=== PATIENT | female | born 1995 | race Asian ===

== ENCOUNTER → 2018-12-25 10:39 | Outpatient (CLI) | payer BC, SELFPAY ==
--- NOTE | 2018-12-25 10:42 | DI.RAD.S_ITS ---
PROCEDURE: XR KNEE LT 3V INDICATIONS: knee pain TECHNIQUE: 3 views of the knee were acquired. COMPARISON: None. FINDINGS: Bones: No fractures or dislocations. No suspicious bony lesions. Soft tissues: No joint effusion. No suspicious soft tissue calcifications. IMPRESSION: No fracture. No osseous lesion. If symptoms and/or clinical suspicion for pathology persists, further assessment with repeat radiographs (7-10 days) or advanced imaging (e.g. CT, MRI or bone scan) may be helpful. Dictated by: Shannon Watson MD, PhD on 12/25/2018 at 10:56 Approved by: Shannon Watson MD, PhD on 12/25/2018 at 10:56
--- NOTE | 2018-12-25 11:51 | DI.RAD.S_ITS ---
PROCEDURE: XR KNEE RT 3V INDICATIONS: comparison film for L knee pain TECHNIQUE: 3 views of the knee were acquired. COMPARISON: [facility], CR, XR KNEE LT 3V, 12/25/2018, 10:40. FINDINGS: Bones: No fractures or dislocations. No suspicious bony lesions. No definite joint space narrowing. Soft tissues: No joint effusion. No suspicious soft tissue calcifications. IMPRESSION: Normal left knee. Dictated by: Holden Carey M.D. on 12/25/2018 at 13:40 Approved by: Holden Carey M.D. on 12/25/2018 at 13:44
== END ==
PROVIDERS: Family Provider Physician Assistant Medical; PCP Physician Assistant Medical; Visit Provider Physician Assistant
DX: M25.562 Pain in left knee (principal)
CPT/HCPCS: 73562

== ENCOUNTER 2021-03-16 02:35 | Emergency (ER) | payer BC, SELFPAY ==
[2021-03-16 02:43] VITALS: BP 133/97; PULSE 77; RESP 16; TEMP 36.3; O2SAT 98; BMI 22.2
--- NOTE | 2021-03-16 02:43 | ED_ITS ---
HPI - Abdominal Pain General Chief Complaint: Abdominal Pain Stated Complaint: Abd Pain Time Seen by Provider: 03/16/21 02:43 History of Present Illness HPI narrative: 25-year-old female nonsmoker with history of frequent constipation, rheumatoid arthritis presents with her mother and a chief complaint of upwards of 1 week of difficulty with bowel movements. She has episodic pain in her upper abdomen that seems to come and go without any obvious provocation or palliation. She denies any radiation. She has had no nausea or vomiting. She denies any fever or chills. Her last bowel movement was yesterday. She has been taking Mag citrate and even tried an enema to help get her bowels moving. She denies any change in her diet. Though she frequently has trouble moving her bowels it seems at her symptoms have likely worsened since starting Paxil about 6 weeks ago. She denies any recent travel. Related Data Home Medications Medication Instructions Recorded Confirmed lysine [L-Lysine] PO 12/25/18 12/25/18 norgestimate-ethinyl estradiol PO 12/25/18 12/25/18 [Lat-Cl-Rraredehc] omega-3 fatty acids [Fish Oil] PO 12/25/18 12/25/18 pediatric multivitamin PO 12/25/18 12/25/18 [multivitamin] tofacitinib [Xeljanz] PO 12/25/18 12/25/18 Previous Rx's Medication Instructions Recorded pantoprazole 40 mg tablet,delayed 40 mg PO DAILY #30 tab 03/16/21 release (Protonix) Allergies Allergy/AdvReac Type Severity Reaction Status Date / Time adalimumab [From Humira] Allergy Severe rash, hives Verified 12/25/18 17:09 etanercept [From Enbrel] Allergy rash, hives Verified 12/25/18 17:09 Review of Systems Review of Systems Narrative: GENERAL: Denies chills, fatigue, malaise, fever, sweats. HEENT: Denies sinus pain, ear pain, sore throat, difficulty swallowing, dizziness. RESPIRATORY: Denies dyspnea, cough, wheezing, hemoptysis, sputum. CARDIOVASCULAR: Denies chest pain, palpitations, orthopnea, edema, GASTROINTESTINAL: See HP : Denies dysuria, frequency, incontinence, hematuria, urinary retention. MUSCULOSKELETAL: denies weakness, joint pain, or bony pain SKIN: Denies rash, skin lesions, or other NEUROLOGIC: Denies weakness, headache, numbness, change in speech, confusion, seizures, incoordination. PSYCHIATRIC: No concerning psychosocial issues. 12 point review of systems is negative except for those stated above Patient History Social History Smoking Status: Never smoker Smoking Status: Never smoker Exam Narrative Exam Narrative: GENERAL: [25 year old patient appears stated age. Well-developed patient, in mild distress. HEAD: Atraumatic. Normocephalic. EYES: Pupils equal round and reactive. Extraocular motions intact. No scleral icterus. No injection or drainage. ENT: Nose without bleeding, purulent drainage. Throat without erythema, tonsillar hypertrophy or exudate. Airway patent. NECK: Trachea midline. Non tender CARDIOVASCULAR: Regular rate and rhythm without murmurs, gallops, or rubs. RESPIRATORY: Clear to auscultation. Breath sounds equal bilaterally. No wheezes, rales, or rhonchi. GASTROINTESTINAL: Abdomen soft, non-tender, nondistended. EXTREMITIES: No edema or joint tenderness. BACK: Nontender without deformity or crepitance. No flank tenderness. NEURO: AOx3. SKIN: No rash or erythema of visible areas Initial Vital Signs Initial Vital Signs: Vital Signs Temperature 97.4 F L 03/16/21 02:43 Pulse Rate 77 03/16/21 02:43 Respiratory Rate 16 03/16/21 02:43 Blood Pressure 133/97 H 03/16/21 02:43 Pulse Oximetry 98 03/16/21 02:43 Course Course Course Narrative: later after initial HPI patient states she thinks maybe she has some worsening of pain after eating. She admits to taking Advil twice daily for quite some time. Orders Ordered: ED Orders 03/16/21 02:43 XR acute abdomen series Stat 03/16/21 03:20 Urine Microscopic Stat Discontinued Medications Al Hydrox/Mg Hydrox/Simethicone 20 ml/ Lidocaine HCl 15 ml 0 ml PO NOW ONE Stop: 03/16/21 03:16 Last Admin: 03/16/21 03:37 Dose: 35 ml Documented by: GLORIA Pantoprazole Sodium (Pantoprazole Dr 20 Mg Tablet) 20 mg PO NOW ONE Stop: 03/16/21 03:17 Last Admin: 03/16/21 03:37 Dose: 20 mg Documented by: GLORIA Vital Signs Vital signs: Vital Signs - 8 hr 03/16/21 02:43 Temperature 97.4 F L Pulse Rate 77 Respiratory Rate 16 Blood Pressure 133/97 H Pulse Oximetry 98 MDM - Abdominal Pain Lab Data Labs: Lab Results 03/16/21 Range/Units 03:20 Urine RBC 0-1/hpf (0-5/HPF) Urine WBC 0-1/hpf (0-5/HPF) Ur Squamous Epith Cells 0-1 /hpf (0-5/HPF) Amorphous Sediment 2+ Urine Bacteria None seen (None) Urine Mucus 1+ H (Negative) Ur Culture Indicated? Cult not indicated Point of care testing: Point of Care Testing Test Results Negative Urine Dip Bedside Urine Glucose Negative Bedside Urine Bilirubin - Negative Bedside Urine Ketone - Negative Urine Specific [employer] 1.030 Bedside Urine Occult Blood ++ Bedside Urine pH 6.0 Bedside Urine Protein +/- 15 Bedside Urine Urobilinogen - Negative Bedside Urine Nitrite - Negative Bedside Urine Leukocytes - Negative Esterase MDM Narrative Medical decision making narrative: Patient's history and physical exam are very reassuring. There is no evidence of bowel obstruction. Imaging would suggest a large stool burden but in a nonobstructive pattern. Elements of her story would suggest there may be some elements of gastritis or GERD given the burning in her abdomen occasion with eating and frequent use of NSAIDs. This could certainly be exacerbated by her constipation. Patient given return precautions and questions answered to her apparent satisfaction Discharge Plan Departure Patient Disposition: Home Clinical Impression: Constipation Qualifiers: Constipation type: unspecified constipation type Qualified Code(s): K59.00 - Constipation, unspecified Instructions: DI for Constipation, DI for Dyspepsia Activity Restrictions/Additional Instructions: *You have been diagnosed with [ abdominal pain due to constipation. Physical exam and x-ray are very reassuring. Elements of your story would suggest there may be some increased acid production in your stomach or esophagus which may be worsened from her constipation but also the daily use of Advil *What to do: A prescription was sent to [facility] in [place] *Take over the counter medications as directed: 1. Metamucil - is a bulk forming laxative and adds fiber 2. Colace - softens your stool 3. Dulcolax suppository - stimulates your bowels *Follow up with your primary care provider in 2-3 days, call for appointment *Return to ER if you should have any new, worsening or concerning symptoms *Drink plenty of water and eat foods high in fiber *Stay as active as you can as this helps move your bowels as well Prescriptions: New pantoprazole [Protonix] 40 mg tablet,delayed release (DR/EC) 40 mg PO DAILY Qty: 30 RF: 0 No Action lysine PO RF: 0 norgestimate-ethinyl estradiol PO RF: 0 omega-3 fatty acids PO RF: 0 pediatric multivitamin PO RF: 0 tofacitinib PO RF: 0 Referrals: Terese Harkins PA-C [Primary Care Provider] -
--- NOTE | 2021-03-16 02:43 | DI.RAD.S_ITS ---
PROCEDURE: XR ACUTE ABDOMEN SERIES INDICATIONS: abdominal pain, decreased BM TECHNIQUE: One view chest and two views of the abdomen were acquired. COMPARISON: None. FINDINGS: Surgical changes and devices: None. Chest: Lungs are clear. Heart size is normal. No pleural effusions. No pneumoperitoneum. Abdomen: Scattered small bowel and colonic gas. No dilated loops of bowel seen. No air-fluid levels. Prominent stool in the colon. No suspicious calcifications. Visualized solid organ contours appear normal. Bones: No suspicious bony lesions. IMPRESSION: No acute cardiopulmonary abnormality. Prominent stool in the colon. This could be seen in constipation. This report is concordant with the overnight preliminary interpretation. Dictated by: Aj Baez M.D. on 03/16/2021 at 8:15 Approved by: Aj Baez M.D. on 03/16/2021 at 8:17
[2021-03-16] MEDS: MAG HYDROX/ALUMINUM/SIMETH SUS 20 ML, LIDOCAINE VISCOUS 2% 15 ML PO (03:37)
[2021-03-16] MEDS: PANTOPRAZOLE DR 20 MG TABLET PO (03:37)
[2021-03-16 03:54] LABS: Amorphous Sediment Urine 2+; Bacteria Urine None Seen; Culture Indicated Urine Cult Not Indicated; Mucus Urine 1+ (Negative); RBC Urine 0-1/HPF (0-5/HPF); Squamous Epithelial Cell Urine 0-1 /HPF (0-5/HPF); WBC Urine 0-1/HPF (0-5/HPF)
== END 2021-03-16 04:40 | disposition home or self-care (01) ==
PROVIDERS: Emergency Provider Emergency Medicine; Family Provider Physician Assistant Medical; PCP Physician Assistant Medical
DX: K59.00 Constipation, unspecified (principal)
CPT/HCPCS: 74022; 81003; 81015; 81025; 99284

== ENCOUNTER 2021-07-24 16:56 | Emergency (ER) | payer BC, SELFPAY ==
[2021-07-24 17:32] VITALS: BP 108/77; PULSE 63; RESP 16; TEMP 36.6; O2SAT 97; BMI 20.1
[2021-07-24 17:53] LABS: Appearance Urine UA CLEAR; Bilirubin Urine UA NEGATIVE (NEGATIVE); Color Urine UA YELLOW; Glucose Urine UA NEGATIVE (Negative); Ketones Urine UA TRACE (NEGATIVE); Leukocyte Esterase Urine UA NEGATIVE (NEGATIVE); Nitrite Urine UA NEGATIVE (Negative); Occult Blood Urine UA TRACE-INTACT (Negative); Protein Urine UA TRACE (Negative); Specific Gravity Urine UA 1.025 (1.000-1.035); Urobilinogen Urine UA 0.2 E.U./dL (0.2)
[2021-07-24 17:56] LABS: pH Urine UA 5.5 (4.5-8.0)
[2021-07-24 18:01] LABS: COVID19 -Nasal RAPID Negative (Negative)
[2021-07-24 18:02] LABS: Bacteria Urine None Seen; RBC Urine 0-1/HPF (0-5/HPF); Squamous Epithelial Cell Urine 0-1 /HPF (0-5/HPF); WBC Urine 0-1/HPF (0-5/HPF)
[2021-07-24 18:03] LABS: Culture Indicated Urine Cult Not Indicated; Mucus Urine 1+ (Negative)
[2021-07-24 21:07] VITALS: BP 112/76; PULSE 66; O2SAT 100
--- NOTE | 2021-07-24 21:24 | ED.NAVMDI ---
HPI - Nausea/Vomiting/Diarrhea General Chief complaint: Nausea/Vomiting/Diarrhea Stated complaint: loss of appetite, pain, weight loss Time Seen by Provider: 07/24/21 21:08 History of Present Illness HPI Narrative: Patient is a 25-year-old female who has a history of rheumatoid arthritis presenting today weeks nausea and vomiting. She says it has actually been going on for the last 4 weeks. Sure she does not vomit that often but she is not eating or drinking. She is nauseous most of the day. She has not seen any provider about it. She actually was diagnosed with COVID last month she was able to eat a little bit during COVID however once her COVID symptoms resolved she continues to be nauseous and is not eating. She lost 10 lb. She denies any abdominal pain. She has no painful or frequent urination she has had multiple negative COVID test. Related Data Home Medications Medication Instructions Recorded Confirmed lysine [L-Lysine] PO 12/25/18 12/25/18 norgestimate-ethinyl estradiol PO 12/25/18 12/25/18 [[id number]] omega-3 fatty acids [Fish Oil] PO 12/25/18 12/25/18 pediatric multivitamin PO 12/25/18 12/25/18 [multivitamin] tofacitinib [Xeljanz] PO 12/25/18 12/25/18 Previous Rx's Medication Instructions Recorded pantoprazole 40 mg tablet,delayed 40 mg PO DAILY #30 tab 03/16/21 release (Protonix) omeprazole 20 mg capsule,delayed 20 mg PO DAILY #30 cap 07/24/21 release ondansetron 4 mg disintegrating 4 mg PO Q6-8H PRN #10 tab 07/24/21 tablet Allergies Allergy/AdvReac Type Severity Reaction Status Date / Time adalimumab [From Humira] Allergy Severe rash, hives Verified 12/25/18 17:09 etanercept [From Enbrel] Allergy rash, hives Verified 12/25/18 17:09 Review of Systems Review of Systems Narrative: GENERAL: Denies chills, fatigue, malaise, fever, sweats, travel HEENT: Denies sinus pain, ear pain, sore throat, difficulty swallowing, neck pain RESPIRATORY: Denies dyspnea, cough, wheezing, hemoptysis, sputum. CARDIOVASCULAR: Denies chest pain, palpitations, orthopnea, edema GASTROINTESTINAL: See HPI : Denies dysuria, frequency, incontinence, hematuria, urinary retention, flank pain. MUSCULOSKELETAL: Denies weakness, joint pain, or bony pain SKIN: No rash, no erythema, no pruritus NEUROLOGIC: Denies weakness, dizziness, headache, numbness, change in speech, confusion PSYCHIATRIC: No concerning psychosocial issues. 12 point review of systems is negative except for those stated above and HPI Patient History Social History Smoking Status: Never smoker Smoking Status: Never smoker alcohol intake frequency: 0-2 drinks per day Substance Use Type: does not use Exam Initial Vital Signs Initial Vital Signs: Vital Signs Temperature 97.9 F 07/24/21 17:32 Pulse Rate 63 07/24/21 17:32 Respiratory Rate 16 07/24/21 17:32 Blood Pressure 108/77 07/24/21 17:32 Pulse Oximetry 97 07/24/21 17:32 GENERAL: Alert thin 25-year-old and in [no acute] distress. HEENT: Head atraumatic,EOMI, pupils reactive, face symmetric, [moist] mucous membranes CARDIOVASCULAR: Regular rate and rhythm without murmurs, rubs or gallops. RESPIRATORY: Breath sounds equal bilaterally, no wheezes rales or rhonchi. ABDOMEN: Soft, nontender. Normoactive bowel sounds all 4 quadrants. No guarding or rebound. EXTREMITIES: Normal range of motion, no clubbing or edema. Neurovascularly intact NEUROLOGICAL: Alert and oriented x4.Normal gait and speech. SKIN: Warm, dry, no laceration, no petechiae, no rashes or lesions. Course Orders Ordered: ED Orders 07/24/21 22:00 Complete Blood Count AUTO DIFF Stat Comprehensive Metabolic Panel Stat Lipase Stat Discontinued Medications Sodium Chloride (Normal Saline 0.9%) 1,000 mls @ 1,000 mls/hr IV CONT SVETA Last Infusion: 07/24/21 23:09 Dose: 0 mls/hr Documented by: Admin: 07/24/21 22:09 Dose: 1,000 mls/hr Documented by: JACK Ondansetron HCl (Ondansetron 4 Mg/2 Ml Inj) 4 mg IV NOW ONE Stop: 07/24/21 21:47 Last Admin: 07/24/21 22:09 Dose: 4 mg Documented by: JACK Pantoprazole Sodium (Pantoprazole 40 Mg Vial) 40 mg IV NOW ONE Stop: 07/24/21 21:47 Last Admin: 07/24/21 22:09 Dose: 40 mg Documented by: JACK Potassium Chloride (Potassium Chloride 20 Meq Tab) 20 meq PO NOW ONE Stop: 07/24/21 23:32 Last Admin: 07/24/21 23:40 Dose: 20 meq Documented by: NICHOLAS Vital Signs Vital signs: Vital Signs - 8 hr 07/24/21 21:07 Pulse Rate 66 Blood Pressure 112/76 Pulse Oximetry 100 MDM - Nausea/Vomiting/Diarrhea Lab Data Result diagrams: 07/24/21 22:00 07/24/21 22:00 Labs: Lab Results 07/24/21 07/24/21 07/24/21 Range/Units 17:37 17:37 22:00 WBC 4.1 L (4.5-11.0) X10^3/uL RBC 4.65 (4.0-5.2) X10^6/uL Hgb 14.1 (12.0-16.0) g/dL Hct 41.7 (36-46) % MCV 89.6 (80-100) fL MCH 30.4 (26-34) PG MCHC 33.9 (30-36) % RDW 13.7 (11.6-14.8) % Plt Count 288 (150-400) X10^3/uL Neut % (Auto) 72.4 (50-75) % Lymph % (Auto) 16.3 L (25-40) % Smyth % (Auto) 9.8 (3-14) % Eos % (Auto) 1.3 L (2-4) % Baso % (Auto) 0.2 (0-2) % Neut # (Auto) 2900 (5833-8545) /uL Lymph # (Auto) 700 L (9233-0266) /uL Smyth # (Auto) 400 (0-900) /uL Eos # (Auto) 100 (0-450) /uL Baso # (Auto) 0 (0-100) /uL Sodium (137-145) mmol/L Potassium (3.4-5.1) mmol/L Chloride (98-107) mmol/L Carbon Dioxide (22-32) mmol/L BUN (7-17) mg/dL Creatinine (0.52-1.04) mg/dL Estimated GFR (>60) mL/min BUN/Creatinine Ratio (6-22) Glucose (70-100) mg/dL Calcium (8.4-10.2) mg/dL Total Bilirubin (0.2-1.3) mg/dL AST (14-36) IU/L ALT (<35) IU/L Alkaline Phosphatase (38-126) U/L Total Protein (6.3-8.2) g/dL Albumin (3.5-5.0) g/dL Globulin (1.7-4.1) g/dL Albumin/Globulin Ratio (1.0-2.8) Lipase (23-300) U/L Urine Color Yellow Urine Appearance Clear Urine pH 5.5 (4.5-8.0) Ur Specific [place] 1.025 (1.000-1.035) Urine Protein Trace H (Negative) Urine Glucose (UA) Negative (Negative) g/dL Urine Ketones Trace H (NEGATIVE) Urine Occult Blood Trace-intact (Negative) Urine Nitrate Negative (Negative) Urine Bilirubin Negative (NEGATIVE) Urine Urobilinogen 0.2 (0.2) E.U./dL Ur Leukocyte Esterase Negative (NEGATIVE) Urine RBC 0-1/hpf (0-5/HPF) Urine WBC 0-1/hpf (0-5/HPF) Ur Squamous Epith Cells 0-1 /hpf (0-5/HPF) Urine Bacteria None seen (None) Urine Mucus 1+ H (Negative) Ur Culture Indicated? Cult not indicated SARS-CoV-2 (PCR) Negative (Negative) 07/24/21 Range/Units 22:00 WBC (4.5-11.0) X10^3/uL RBC (4.0-5.2) X10^6/uL Hgb (12.0-16.0) g/dL Hct (36-46) % MCV (80-100) fL MCH (26-34) PG MCHC (30-36) % RDW (11.6-14.8) % Plt Count (150-400) X10^3/uL Neut % (Auto) (50-75) % Lymph % (Auto) (25-40) % Smyth % (Auto) (3-14) % Eos % (Auto) (2-4) % Baso % (Auto) (0-2) % Neut # (Auto) (8562-8281) /uL Lymph # (Auto) (3913-6522) /uL Smyth # (Auto) (0-900) /uL Eos # (Auto) (0-450) /uL Baso # (Auto) (0-100) /uL Sodium 138 (137-145) mmol/L Potassium 3.2 L (3.4-5.1) mmol/L Chloride 103 (98-107) mmol/L Carbon Dioxide 29 (22-32) mmol/L BUN 15 (7-17) mg/dL Creatinine 0.67 (0.52-1.04) mg/dL Estimated GFR > 60.0 (>60) mL/min BUN/Creatinine Ratio 22.4 H (6-22) Glucose 124 H (70-100) mg/dL Calcium 9.4 (8.4-10.2) mg/dL Total Bilirubin 0.4 (0.2-1.3) mg/dL AST 33 (14-36) IU/L ALT 28 (<35) IU/L Alkaline Phosphatase 44 (38-126) U/L Total Protein 7.6 (6.3-8.2) g/dL Albumin 4.6 (3.5-5.0) g/dL Globulin 3.0 (1.7-4.1) g/dL Albumin/Globulin Ratio 1.5 (1.0-2.8) Lipase 87 (23-300) U/L Urine Color Urine Appearance Urine pH (4.5-8.0) Ur Specific [place] (1.000-1.035) Urine Protein (Negative) Urine Glucose (UA) (Negative) g/dL Urine Ketones (NEGATIVE) Urine Occult Blood (Negative) Urine Nitrate (Negative) Urine Bilirubin (NEGATIVE) Urine Urobilinogen (0.2) E.U./dL Ur Leukocyte Esterase (NEGATIVE) Urine RBC (0-5/HPF) Urine WBC (0-5/HPF) Ur Squamous Epith Cells (0-5/HPF) Urine Bacteria (None) Urine Mucus (Negative) Ur Culture Indicated? SARS-CoV-2 (PCR) (Negative) [facility] Narrative Medical decision making narrative: Patient is found to have mild hypokalemia. She has her potassium replaced here. She is not significantly dehydrated. Her nausea is significantly improved she is tolerating oral fluid. This time unsure what is causing her ongoing nausea. She actually is not vomiting according her. She has no pain I see no need for any imaging. Recommend outpatient follow-up and possible further workup. Discharge Plan Departure Patient Disposition: Home Clinical Impression: Chronic nausea Instructions: DI for Nausea -- Adult Activity Restrictions/Additional Instructions: *You have been diagnosed with chronic nausea *What to do: At this time recommend taking some nausea medications. Trying to drink fluid or protein shake to help give your body some nutrients. Recommend outpatient follow-up with GI specialist and her primary care provider *Continue to take medications as directed--> SENT TO [facility] Zofran 4 mg every 6-8 hours if needed for nausea or vomiting Protonix daily 40 mg once a day *Follow up with your primary care provider in 2-3 days or call [phone] *Return to ER if you should have increasing pain persistent vomiting, lightheadedness, passing out or any new, worsening or concerning symptoms Prescriptions: New omeprazole 20 mg capsule,delayed release(DR/EC) 20 mg PO DAILY Qty: 30 0RF ondansetron 4 mg tablet,disintegrating 4 mg PO Q6-8H PRN (Reason: nausea and vomiting) Qty: 10 0RF No Action lysine PO 0RF norgestimate-ethinyl estradiol PO 0RF omega-3 fatty acids PO 0RF pediatric multivitamin PO 0RF tofacitinib PO 0RF pantoprazole [Protonix] 40 mg tablet,delayed release (DR/EC) 40 mg PO DAILY Qty: 30 0RF Referrals: Terese Harkins PA-C [Primary Care Provider] -
[2021-07-24] MEDS: ONDANSETRON 4 MG/2 ML INJ IV (22:09)
[2021-07-24] MEDS: SODIUM CHLORIDE 0.9% 1,000 ML 1000 ML IV (22:09)
[2021-07-24] MEDS: PANTOPRAZOLE 40 MG VIAL IV (22:09)
[2021-07-24 22:25] LABS: Add Manual Diff / Slide Review NO; Basophils Absolute Auto 0 /uL (0-100); Basophils Percent Auto 0.2 % (0-2); Eosinophils Absolute Auto 100 /uL (0-450); Eosinophils Percent Auto 1.3 % (2-4); Hematocrit 41.7 % (36-46); Hemoglobin 14.1 g/dL (12.0-16.0); Lymphocytes Absolute Auto 700 /uL (1100-4500); Lymphocytes Percent Auto 16.3 % (25-40); Mean Corpuscular HGB Conc 33.9 % (30-36); Mean Corpuscular Hemoglobin 30.4 PG (26-34); Mean Corpuscular Volume 89.6 fL (80-100); Monocytes Absolute Auto 400 /uL (0-900); Monocytes Percent Auto 9.8 % (3-14); Neutrophils Absolute Auto 2900 /uL (1500-7000); Neutrophils Percent Auto 72.4 % (50-75); Platelet Count 288 X10^3/uL (150-400); Red Blood Cell Count 4.65 X10^6/uL (4.0-5.2); Red Cell Distribution Width 13.7 % (11.6-14.8); White Blood Cell Count 4.1 X10^3/uL (4.5-11.0)
[2021-07-24 22:36] LABS: Alanine Aminotransferase 28 IU/L (<35); Albumin 4.6 g/dL (3.5-5.0); Albumin Globulin Ratio 1.5 (1.0-2.8); Alkaline Phosphatase 44 U/L (38-126); Aspartate Aminotransferase 33 IU/L (14-36); BUN Creatinine Ratio 22.4 (6-22); Bilirubin Total 0.4 mg/dL (0.2-1.3); Blood Urea Nitrogen 15 mg/dL (7-17); Calcium 9.4 mg/dL (8.4-10.2); Carbon Dioxide 29 mmol/L (22-32); Chloride 103 mmol/L (98-107); Estimated Glomerular Filt Rate > 60.0 mL/min (>60); Glucose 124 mg/dL (70-100); HEMOLYSIS < 15 (0-50); Lipase 87 U/L (23-300); Potassium 3.2 mmol/L (3.4-5.1); Sodium 138 mmol/L (137-145); Total Protein 7.6 g/dL (6.3-8.2)
[2021-07-24] MEDS: POTASSIUM CHLORIDE 20 MEQ TAB PO (23:40)
== END 2021-07-24 23:49 | disposition home or self-care (01) ==
PROVIDERS: Emergency Medicine; Emergency Provider Emergency Medicine; Family Provider Physician Assistant Medical; PCP Physician Assistant Medical
DX: R11.2 Nausea with vomiting, unspecified (principal); E86.0 Dehydration; Z20.822 Contact with and (suspected) exposure to COVID-19
CPT/HCPCS: 36415; 80053; 81001; 83690; 85025; 87635; 96361; 96374; 96375; 99284; C9803; C9113; J2405

== ENCOUNTER 2022-10-14 12:50 | Emergency (ER) | payer OTHER, SELFPAY ==
[2022-10-14 12:54] VITALS: BP 113/80; PULSE 58; RESP 14; TEMP 36.2; O2SAT 100; BMI 21.4
--- NOTE | 2022-10-14 15:39 | ED_ITS ---
HPI - Nausea/Vomiting/Diarrhea General Chief complaint: Nausea/Vomiting/Diarrhea Stated complaint: dehydrated/diarreah t-3/dizzy/temp 95 Time Seen by Provider: 10/14/22 15:39 Source: patient Mode of arrival: Wheelchair History of Present Illness HPI Narrative: 27-year-old female nonsmoker with history of rheumatoid arthritis presents with family in the chief complaint of multiple episodes of diarrhea over the past 2-3 days. She is concerned that perhaps this is a side effect of her arthritis medications Xeljanz which she stopped yesterday. She denies recent travel, antibiotic use, exposure to bad food or other ill persons. She is dizzy and lightheaded upon standing. She is had nausea but denies any vomiting. She is had fever or chills. She denies dysuria, frequency or urgency. Related Data Home Medications Medication Instructions Recorded Confirmed lysine [L-Lysine] PO 12/25/18 12/25/18 norgestimate-ethinyl estradiol PO 12/25/18 12/25/18 [[id number]] omega-3 fatty acids [Fish Oil] PO 12/25/18 12/25/18 pediatric multivitamin PO 12/25/18 12/25/18 [multivitamin] tofacitinib [Xeljanz] PO 12/25/18 12/25/18 Previous Rx's Medication Instructions Recorded pantoprazole 40 mg tablet,delayed 40 mg PO DAILY #30 tabs 03/16/21 release (Protonix) omeprazole 20 mg capsule,delayed 20 mg PO DAILY #30 caps 07/24/21 release ondansetron 4 mg disintegrating 4 mg PO Q6-8H PRN nausea and 07/24/21 tablet vomiting #10 tabs Allergies Allergy/AdvReac Type Severity Reaction Status Date / Time adalimumab [From Humira] Allergy Severe rash, hives Verified 10/14/22 16:03 etanercept [From Enbrel] Allergy rash, hives Verified 10/14/22 16:03 infliximab [From Remicade] Allergy Verified 10/14/22 16:03 Review of Systems Review of Systems Narrative: GENERAL: See HPI HEENT: Denies sinus pain, ear pain, sore throat, difficulty swallowing, dizziness. RESPIRATORY: Denies dyspnea, cough, wheezing, hemoptysis, sputum. CARDIOVASCULAR: Denies chest pain, palpitations, orthopnea, edema, GASTROINTESTINAL: See HPI : Denies dysuria, frequency, incontinence, hematuria, urinary retention. MUSCULOSKELETAL: denies weakness, joint pain, or bony pain SKIN: Denies rash, skin lesions, or other NEUROLOGIC: Denies weakness, headache, numbness, change in speech, confusion, seizures, incoordination. PSYCHIATRIC: No concerning psychosocial issues. 12 point review of systems is negative except for those stated above Patient History Social History Smoking Status: Never smoker Smoking Status: Never smoker alcohol intake frequency: holidays/special occasions only Substance Use Type: does not use Exam Narrative Exam Narrative: GENERAL: [27] year old patient appears stated age. Well-developed patient, in mild distress. HEAD: Atraumatic. Normocephalic. EYES: Pupils equal round and reactive. Extraocular motions intact. No scleral icterus. No injection or drainage. ENT: Nose without bleeding, purulent drainage. Throat without erythema, tonsillar hypertrophy or exudate. Airway patent. NECK: Trachea midline. Non tender CARDIOVASCULAR: Regular rate and rhythm without murmurs, gallops, or rubs. RESPIRATORY: Clear to auscultation. Breath sounds equal bilaterally. No wheezes, rales, or rhonchi. GASTROINTESTINAL: Abdomen soft, non-tender, nondistended. EXTREMITIES: No edema or joint tenderness. BACK: Nontender without deformity or crepitance. No flank tenderness. NEURO: AOx3. SKIN: No rash or erythema of visible areas Initial Vital Signs Initial Vital Signs: Vital Signs Temperature 97.2 F L 10/14/22 12:54 Pulse Rate 58 L 10/14/22 12:54 Respiratory Rate 14 10/14/22 12:54 Blood Pressure 113/80 10/14/22 12:54 Pulse Oximetry 100 10/14/22 12:54 Oxygen Delivery Method Room Air 10/14/22 12:54 Course Orders Ordered: Discontinued Medications Sodium Chloride (Normal Saline 0.9%) 1,000 mls @ 1,000 mls/hr IV BOLUS ONE Stop: 10/14/22 17:01 Last Infusion: 10/14/22 17:52 Dose: 0 mls/hr Documented By: Admin: 10/14/22 16:11 Dose: 1,000 mls/hr Documented By: TUCKER Vital Signs Vital signs: Vital Signs - 8 hr 10/14/22 12:54 Temperature 97.2 F L Pulse Rate 58 L Respiratory Rate 14 Blood Pressure 113/80 Pulse Oximetry 100 Oxygen Delivery Method Room Air MDM - Nausea/Vomiting/Diarrhea Lab Data 10/14/22 15:55 10/14/22 15:55 Labs: Lab Results 10/14/22 10/14/22 10/14/22 Range/Units 15:55 15:55 15:55 WBC 2.9 L (4.5-11.0) X10^3/uL RBC 4.82 (4.0-5.2) X10^6/uL Hgb 14.4 (12.0-16.0) g/dL Hct 43.1 (36-46) % MCV 89.5 (80-100) fL MCH 29.8 (26-34) PG MCHC 33.3 (30-36) % RDW 12.9 (11.6-14.8) % Plt Count 268 (150-400) X10^3/uL Neut % (Auto) 52.0 (50-75) % Lymph % (Auto) 29.7 (25-40) % [place] % (Auto) 16.7 H (3-14) % Eos % (Auto) 1.3 L (2-4) % Baso % (Auto) 0.3 (0-2) % Neut # (Auto) 1500 (0068-3183) /uL Lymph # (Auto) 900 L (7405-9627) /uL [place] # (Auto) 500 (0-900) /uL Eos # (Auto) 0 (0-450) /uL Baso # (Auto) 0 (0-100) /uL Sodium 136 L (137-145) mmol/L Potassium 4.2 (3.4-5.1) mmol/L Chloride 100 (98-107) mmol/L Carbon Dioxide 26 (22-32) mmol/L BUN 9 (7-17) mg/dL Creatinine 0.55 (0.52-1.04) mg/dL Estimated GFR > 60 (>60) mL/min BUN/Creatinine Ratio 16.4 (6-22) Glucose 98 (70-100) mg/dL Lactate 1.1 (0.7-2.1) mmol/L Calcium 9.4 (8.4-10.2) mg/dL Total Bilirubin 0.4 (0.2-1.3) mg/dL AST 49 H (14-36) IU/L ALT 31 (<35) IU/L Alkaline Phosphatase 60 (38-126) U/L Total Protein 8.2 (6.3-8.2) g/dL Albumin 4.9 (3.5-5.0) g/dL Globulin 3.3 (1.7-4.1) g/dL Albumin/Globulin Ratio 1.5 (1.0-2.8) Procalcitonin 0.05 (<0.5) ng/mL Point of Care Testing Test Results Negative Urine Dip Bedside Urine Glucose Negative Bedside Urine Bilirubin - Negative Bedside Urine Ketone +/- 5 Urine Specific [place] 1.01 Bedside Urine Occult Blood - Negative Bedside Urine pH 6 Bedside Urine Protein - Negative Bedside Urine Urobilinogen - Negative Bedside Urine Nitrite - Negative Bedside Urine Leukocytes - Negative Esterase MDM Narrative Medical decision making narrative: [27] year old patient presents with multiple episodes diarrhea, dizziness and lightheaded Multiple etiologies for patient's symptoms considered including, but not limited to: [Infectious versus medication related versus dehydration versus electrolyte abnormality] Prior Charts reviewed in our EMR Primary Historian: patient Labs reviewed and interpreted by myself: No significant abnormalities noted Patient's symptoms improved over duration of stay with above-stated therapies. Patient no longer dizzy, ambulatory in the department, tolerating orals Findings and discharge diagnosis discussed with patient/family followed by verbalization of understanding Return precautions discussed with patient/family whom verbalize understanding of diagnosis and plan Discharge Plan Departure Patient Disposition: Home Clinical Impression: Diarrhea, Acute dehydration Instructions: Diarrhea, DI for Dehydration -- Adult Activity Restrictions/Additional Instructions: *You have been diagnosed with [diarrhea and dehydration] * As we discussed your history and physical exam as well as labs and imaging are very reassuring. There is no evidence of any severe diagnoses that would require a specific or immediate intervention. *What to do: *Please continue to take your regular medications as directed. *Please follow up with your primary care provider in 2-3 days, call for an appointment. Let them know you were seen in the Emergency Department and that we ask that you be seen in follow up. We will electronically transmit a record of today's note if your PCP is in our system *Please consider a clear liquid diet for the next 24-48 hours and then slowly advance to regular as tolerated. Also, try to avoid alcohol, nicotine, caffeine, spicy, acidic or fatty foods as this may worsen your symptoms *If you do not have a primary care provider please contact the [facility] Resource line at [phone]. They will ask some questions about your medical history and help get you set up with a doctor in the community. *Return to Emergency Department if you should have any new, worsening or concerning symptoms, such as [fever greater than 101 F, shaking chills, wors ening pain, persistent vomiting or other bothersome symptoms] Prescriptions: No Action lysine PO norgestimate-ethinyl estradiol PO omega-3 fatty acids PO pediatric multivitamin PO tofacitinib PO pantoprazole [Protonix] 40 mg tablet,delayed release (DR/EC) 40 mg PO DAILY Qty: 30 0RF omeprazole 20 mg capsule,delayed release(DR/EC) 20 mg PO DAILY Qty: 30 0RF ondansetron 4 mg tablet,disintegrating 4 mg PO Q6-8H PRN (Reason: nausea and vomiting) Qty: 10 0RF Referrals: Terese Harkins PA-C [Primary Care Provider] - Stand Alone Forms: Patient Portal/API
[2022-10-14 16:09] LABS: Add Manual Diff / Slide Review NO; Basophils Absolute Auto 0 /uL (0-100); Basophils Percent Auto 0.3 % (0-2); Eosinophils Absolute Auto 0 /uL (0-450); Eosinophils Percent Auto 1.3 % (2-4); Hematocrit 43.1 % (36-46); Hemoglobin 14.4 g/dL (12.0-16.0); Lymphocytes Absolute Auto 900 /uL (1100-4500); Lymphocytes Percent Auto 29.7 % (25-40); Mean Corpuscular HGB Conc 33.3 % (30-36); Mean Corpuscular Hemoglobin 29.8 PG (26-34); Mean Corpuscular Volume 89.5 fL (80-100); Monocytes Absolute Auto 500 /uL (0-900); Monocytes Percent Auto 16.7 % (3-14); Neutrophils Absolute Auto 1500 /uL (1500-7000); Platelet Count 268 X10^3/uL (150-400); Red Blood Cell Count 4.82 X10^6/uL (4.0-5.2); Red Cell Distribution Width 12.9 % (11.6-14.8); White Blood Cell Count 2.9 X10^3/uL (4.5-11.0)
[2022-10-14 16:11] VITALS: BP 106/80; PULSE 58; RESP 16; O2SAT 99
[2022-10-14] MEDS: SODIUM CHLORIDE 0.9% 1,000 ML 1000 ML IV (16:11)
[2022-10-14 16:15] LABS: Alanine Aminotransferase 31 IU/L (<35); Albumin 4.9 g/dL (3.5-5.0); Albumin Globulin Ratio 1.5 (1.0-2.8); Alkaline Phosphatase 60 U/L (38-126); Aspartate Aminotransferase 49 IU/L (14-36); BUN Creatinine Ratio 16.4 (6-22); Bilirubin Total 0.4 mg/dL (0.2-1.3); Blood Urea Nitrogen 9 mg/dL (7-17); Calcium 9.4 mg/dL (8.4-10.2); Carbon Dioxide 26 mmol/L (22-32); Chloride 100 mmol/L (98-107); Estimated Glomerular Filt Rate > 60 mL/min (>60); Globulin 3.3 g/dL (1.7-4.1); Glucose 98 mg/dL (70-100); HEMOLYSIS 52 (0-50); Lactate (Lactic Acid) 1.1 mmol/L (0.7-2.1); Potassium 4.2 mmol/L (3.4-5.1); Sodium 136 mmol/L (137-145); Total Protein 8.2 g/dL (6.3-8.2)
[2022-10-14 16:31] LABS: Procalcitonin 0.05 ng/mL (<0.5)
[2022-10-14 16:35] VITALS: BP 107/78; PULSE 55; RESP 15; O2SAT 99
[2022-10-14 17:42] VITALS: BP 112/70; PULSE 57; RESP 15; O2SAT 99
[2022-10-14 17:43] VITALS: BP 112/70; BP 112/81; BP 95/60; PULSE 55; PULSE 56; PULSE 57
--- NOTE | 2022-10-14 17:44 | PC.NURSE ---
reports dizziness today
--- NOTE | 2022-10-14 17:45 | PC.NURSE ---
Denies dizziness with standing or ambulation. Dr. Stack aware.
== END 2022-10-14 18:07 | disposition home or self-care (01) ==
PROVIDERS: Emergency Provider Emergency Medicine; Family Provider Physician Assistant Medical; PCP Physician Assistant Medical
DX: R19.7 Diarrhea, unspecified (principal); E86.0 Dehydration; R42 Dizziness and giddiness
CPT/HCPCS: 36415; 80053; 81003; 81025; 83605; 84145; 85025; 96360; 96361; 99284

== ENCOUNTER 2022-11-05 17:51 | Emergency (ER) | payer OTHER, SELFPAY ==
[2022-11-05 17:56] VITALS: BP 111/77; PULSE 72; RESP 14; TEMP 36.9; O2SAT 99; BMI 21.4
--- NOTE | 2022-11-05 18:12 | ED.HEATRA ---
HPI - Head Injury General Chief complaint: Head Injury Stated complaint: Head inj Time Seen by Provider: 11/05/22 17:58 Source: patient Mode of arrival: Ambulatory History of Present Illness HPI Narrative: 27-year-old female nonsmoker with history of rheumatoid arthritis presents with family in the chief complaint of a headache. She states 2 days ago she was getting into her car and bumped the right side of her forehead while getting it. She denies any loss of consciousness nausea or vomiting. She denies use of blood thinners. She is not dizzy or lightheaded. She denies any numbness, tingling or weakness of her extremities. She is at her neurologic baseline per her own admission that of the family at the bedside. She states that she is having a headache in the aftermath that did not get better after her migraine medications. Related Data Home Medications Medication Instructions Recorded Confirmed lysine [L-Lysine] PO 12/25/18 12/25/18 norgestimate-ethinyl estradiol PO 12/25/18 12/25/18 [[id number]] omega-3 fatty acids [Fish Oil] PO 12/25/18 12/25/18 tofacitinib 5 mg tablet (Xeljanz) 5 mg PO BID 11/05/22 11/05/22 Previous Rx's Medication Instructions Recorded pantoprazole 40 mg tablet,delayed 40 mg PO DAILY #30 tabs 03/16/21 release (Protonix) omeprazole 20 mg capsule,delayed 20 mg PO DAILY #30 caps 07/24/21 release ondansetron 4 mg disintegrating 4 mg PO Q6-8H PRN nausea and 07/24/21 tablet vomiting #10 tabs Allergies Allergy/AdvReac Type Severity Reaction Status Date / Time adalimumab [From Humira] Allergy Severe rash, hives Verified 11/05/22 17:56 etanercept [From Enbrel] Allergy rash, hives Verified 11/05/22 17:56 infliximab [From Remicade] Allergy Verified 11/05/22 17:56 Review of Systems Review of Systems Narrative: GENERAL: Denies chills, fatigue, malaise, fever, sweats. HEENT: Denies sinus pain, ear pain, sore throat, difficulty swallowing, dizziness. RESPIRATORY: Denies dyspnea, cough, wheezing, hemoptysis, sputum. CARDIOVASCULAR: Denies chest pain, palpitations, orthopnea, edema, GASTROINTESTINAL: Denies nausea, vomiting, abdominal pain, diarrhea, constipation, melena. : Denies dysuria, frequency, incontinence, hematuria, urinary retention. MUSCULOSKELETAL: denies weakness, joint pain, or bony pain SKIN: Denies rash, skin lesions, or other NEUROLOGIC: See HPI PSYCHIATRIC: No concerning psychosocial issues. 12 point review of systems is negative except for those stated above Patient History Social History Smoking Status: Never smoker Smoking Status: Never smoker alcohol intake frequency: holidays/special occasions only Substance Use Type: does not use Exam Narrative Exam Narrative: GENERAL: [27] year old patient appears stated age. Well-developed patient, in mild distress. GCS 15 HEAD: Atraumatic. Normocephalic. No swelling, no evidence of depressed skull fracture EYES: Pupils equal round and reactive. Extraocular motions intact. No scleral icterus. No injection or drainage. ENT: Nose without bleeding, purulent drainage. Throat without erythema, tonsillar hypertrophy or exudate. Airway patent. NECK: Trachea midline. Non tender CARDIOVASCULAR: Regular rate and rhythm without murmurs, gallops, or rubs. RESPIRATORY: Clear to auscultation. Breath sounds equal bilaterally. No wheezes, rales, or rhonchi. GASTROINTESTINAL: Abdomen soft, non-tender, nondistended. EXTREMITIES: No edema or joint tenderness. BACK: Nontender without deformity or crepitance. No flank tenderness. NEURO: AOx3. SKIN: No rash or erythema of visible areas Initial Vital Signs Initial Vital Signs: Vital Signs Temperature 98.5 F 11/05/22 17:56 Pulse Rate 72 11/05/22 17:56 Respiratory Rate 14 11/05/22 17:56 Blood Pressure 111/77 11/05/22 17:56 Pulse Oximetry 99 11/05/22 17:56 Oxygen Delivery Method Room Air 11/05/22 17:56 Course Orders Ordered: Discontinued Medications Acetaminophen (Acetaminophen 325 Mg Tablet) 975 mg PO NOW ONE Stop: 11/05/22 18:30 Last Admin: 11/05/22 18:34 Dose: 975 mg Documented By: AT Ketorolac Tromethamine (Ketorolac 30 Mg/Ml Vial) 30 mg IM NOW ONE Stop: 07/01/23 18:30 Last Admin: 11/05/22 18:34 Dose: 30 mg Documented By: AT Reevaluation(s) Reevaluation #1: Patient with significant if not complete resolution symptoms after above-stated therapies. Vital Signs Vital signs: Vital Signs - 8 hr 11/05/22 19:56 Pulse Rate 68 Respiratory Rate 16 Blood Pressure 112/79 Pulse Oximetry 100 Oxygen Delivery Method Room Air MDM - Head Injury MDM Narrative Medical decision making narrative: Headache considerations include, but not limited to: Subarachnoid hemorrhage, but unlikely as patient denies sudden onset of pain, not worst of life, or neck pain Meningitis considered, but thought unlikely given lack of Brudzinski's, Kernig's sign, altered mental status or fever Giant cell arteritis considered, but thought unlikely given lack of unilateral findings, pain in oriental orthodox, vision change HTN Emergency considered, but thought unlikely given normal vitals Other serious diagnoses considered unlikely given lack of red flag findings such as sudden onset, increasing frequency, immunocompromise, systemic signs (fever, chills, stiff neck, or rash), focal neurologic findings, trauma, blood thinners, etc. Patient's symptoms improved over duration of stay with above-stated therapies. Findings and discharge diagnosis discussed with patient/family followed by verbalization of understanding Return precautions discussed with patient/family whom verbalize understanding of diagnosis and plan Discharge Plan Departure Patient Disposition: Home Clinical Impression: Acute head injury Instructions: DI for Headache Activity Restrictions/Additional Instructions: *You have been diagnosed with [ Headache ] *What to do: *Take medications as directed *Follow up with your primary care provider in 2-3 days, call for an appointment. Let them know you were seen in the Emergency Department and that we ask that you be seen in follow up *Return to ER if you should have any new, worsening or concerning symptoms, such as [ fever > 101F, neck pain or stiffness, vomiting, confusion, seizure, focal weakness, vision change, speech deficit or other concerning symptoms ] Prescriptions: No Action lysine PO norgestimate-ethinyl estradiol PO omega-3 fatty acids PO pantoprazole [Protonix] 40 mg tablet,delayed release (DR/EC) 40 mg PO DAILY Qty: 30 0RF omeprazole 20 mg capsule,delayed release(DR/EC) 20 mg PO DAILY Qty: 30 0RF ondansetron 4 mg tablet,disintegrating 4 mg PO Q6-8H PRN (Reason: nausea and vomiting) Qty: 10 0RF Xeljanz 5 mg tablet 5 mg PO BID Referrals: Terese Harkins PA-C [Primary Care Provider] - Stand Alone Forms: Patient Portal/API
[2022-11-05] MEDS: ACETAMINOPHEN 325 MG TABLET 975 MG PO (18:34)
[2022-11-05] MEDS: KETOROLAC 30 MG/ML VIAL IM (18:34)
[2022-11-05 19:56] VITALS: BP 112/79; PULSE 68; RESP 16; O2SAT 100
== END 2022-11-05 19:57 | disposition home or self-care (01) ==
PROVIDERS: Emergency Provider Emergency Medicine; Family Provider Physician Assistant Medical; PCP Physician Assistant Medical
DX: S09.90XA Unspecified injury of head, initial encounter (principal); W51.XXXA Accidental striking against or bumped into by another person, initial encounter
CPT/HCPCS: 96372; 99283; J1885

== ENCOUNTER → 2024-06-16 10:53 | Outpatient (CLI) | payer OTHER, SELFPAY ==
[2024-06-16 11:41] LABS: Influenza A - CEPHEID Flu A NEGATIVE (NEGATIVE); Influenza B - CEPHEID Flu B NEGATIVE (NEGATIVE); Respiratory Syncytial Virus POSITIVE (Negative)
[2024-06-16 11:42] LABS: COVID-19 CEPHEID 4-PLEX PCR Negative (Negative)
== END ==
PROVIDERS: Family Provider Physician Assistant Medical; PCP Physician Assistant Medical; Visit Provider Nurse Practitioner Family
DX: R05.1 Acute cough (principal)
CPT/HCPCS: 0241U; 87070

== ENCOUNTER → 2025-01-25 09:39 | Outpatient (CLI) | payer OTHER, SELFPAY ==
--- NOTE | 2025-01-25 09:41 | DI.CT.S_ITS ---
PROCEDURE: CT SINUS SCREEN WO CON INDICATIONS: CHRONIC PANSINUSITIS TECHNIQUE: Noncontrast 3.0 mm axial images acquired from the frontal sinuses to the mid- sella, with coronal and sagittal reformats. For radiation dose reduction, the following was used: automated exposure control, adjustment of mA and/or kV according to patient size. COMPARISON: None. FINDINGS: Image quality: Diagnostic Maxillary Sinuses: No bony remodeling or destruction. Sinuses are clear. Ethmoid Air Cells: No bony remodeling or destruction. Sinuses are clear. Sphenoid Sinuses: No bony remodeling or destruction. Sinuses are clear. Pneumatized lateral recesses. Frontal Sinuses: No bony remodeling or destruction. Sinuses are clear. Ostiomeatal Complexes: Small bilateral Demetrius cells. Overall patent Miscellaneous: Visualized intra-orbital contents are normal. No carolyn bullosa or paradoxical turbinate curvature. No nasal septal deviation. Bilateral TMJ arthrosis Left nonacute appearing bone fragments are present. IMPRESSION: No significant sinus disease on today's CT. Bilateral TMJ arthrosis. Nonacute appearing periarticular left bone fragments are seen. Dictated by: Austin Fonseca M.D. on 01/25/2025 at 10:25 Approved by: Austin Fonseca M.D. on 01/25/2025 at 10:28
== END ==
LOC: CT 09:40
PROVIDERS: Family Provider Physician Assistant Medical; PCP Physician Assistant Medical; Referring Provider Otolaryngology; Visit Provider Otolaryngology
DX: J32.4 Chronic pansinusitis (principal); M26.653 Arthropathy of bilateral temporomandibular joint; R51.9 Headache, unspecified; R09.82 Postnasal drip
CPT/HCPCS: 70486